=== PATIENT | male | born 1990 | race Two or more races ===

== ENCOUNTER 2019-03-07 19:03 | Emergency (ER) | payer MEDICAID ==
[~2019-03-07] VITALS: Ht 172.7 cm; Wt 80.0 kg
[2019-03-07] MEDS ORDERED: SODIUM CHLORIDE 0.9% 1,000 ML IV ONE (22:52)
[2019-03-07] MEDS ORDERED: KETOROLAC 30MG/ML VIAL IV STA (22:52)
[2019-03-07] MEDS ORDERED: MORPHINE SULFATE 4 MG/ML CPJ (NOT FOR IM USE) IV STA (22:52)
[2019-03-07 23:37] LABS: BASOPHILS % 0.4 % (0.0-2.0); HEMATOCRIT. 39.1 % (42.0-52.0); HEMOGLOBIN. 12.7 g/dL (14.0-18.0); LYMPHOCYTES % 8.8 % (20.0-50.0); MEAN CORPUSCULAR VOLUME 80.5 fL (80.0-94.0); MEAN PLATELET VOLUME 6.9 fl (7.4-10.4); NEUTROPHILS % 82.8 % (40.0-76.0); PLATELET 381 x1000/uL (130-400); RED BLOOD CELL COUNT 4.86 mill/uL (4.7-6.1); RED CELL DISTRIBUTION WIDTH 15.8 % (11.6-14.6)
[2019-03-07 23:41] LABS: CHLORIDE 110 mEq/L (98-107)
[2019-03-08] MEDS ORDERED: DEXAMETHASONE 10 MG/ML VIAL IV ONE (02:00)
[2019-03-08 03:26] VITALS: BP 136/84
[2019-03-08] MEDS ORDERED: IOHEXOL-300 100 ML BOTTLE ONE (05:56)
== END 2019-03-08 03:29 | disposition home or self-care (01) ==
LOC: ER 19:03
DX: R10.84 Generalized abdominal pain (principal); R11.10 Vomiting, unspecified; R19.7 Diarrhea, unspecified
CPT/HCPCS: 36415; 74177; 80053; 83690; 85025; 96374; 96375; 99284; J1100; J1885; J2270; J7030; Q9967